=== PATIENT | female | born 1980 | race Caucasian/White ===

== ENCOUNTER 2017-04-02 16:06 | Emergency (ER) | payer MEDICAID ==
[~2017-04-02 16:06] MED LIST: ATIVAN0.5 MG PO; CATAPRES0.1 MG PO; CELEXA20 MG PO; CELEXA40 M1 PO; CLONAZEPAM0.5 MG PO; DESYREL100 MG PO; DIVALPROEX PO; FLAGYL500 MG PO; KLONOPIN2 MG PO; LEVAQUIN500 MG PO; LISINOPRIL10 MG PO; LITHIUM CARBON300 PO; MOTRIN800 MG PO; OXYCODONE/APAP PO; PERCOCET 5/3251 TAB PO; ULTRAM50 MG PO; VIBRAMYCIN100 MG PO; ZOFRAN ODT4 MG/UDTAB PO; [UNRECOGNIZED DRUG - OTHER] PO
[2017-04-02] MEDS ORDERED: BUTRANS1 EACH TD (16:11)
[2017-04-02] MEDS ORDERED: VISTARIL25 M1 PO (16:11)
== END 2017-04-02 16:32 ==
LOC: EDMED 16:06
DX: L55.9 Sunburn, unspecified (principal); Z86.73 Personal history of transient ischemic attack (TIA), and cerebral infarction without residual deficits; Z88.0 Allergy status to penicillin; Z88.2 Allergy status to sulfonamides; Z98.890 Other specified postprocedural states